=== PATIENT | female | born 1995 ===

== ENCOUNTER 2025-01-27 07:00 | Day surgery (SDC) | payer OTHER ==
[2025-01-20 11:14] VITALS: BP 108/71
[2025-01-20 12:22] LABS: BASO % 0.8 % (0.1-1.2); EOS # 0.23 (0.04-0.54); EOS % 4.8 % (0.7-7.0); LYMPH # 1.61 (1.18-3.74); LYMPH % 33.3 % (19.3-53.1); MEAN PLATELET VOLUME 9.90 fl (9.4-12.4); MONO # 0.42 (0.24-0.82); MONO % 8.7 % (4.7-12.5); NEUT # 2.53 (1.56-6.13); NEUT % 52.4 % (34.0-71.1); RED CELL DISTRIBUTION WIDTH 13.8 % (11.6-14.4)
[2025-01-20 12:41] LABS: INR 0.98
[2025-01-20 12:42] LABS: URINE APPEARANCE Clear; URINE BILIRRUBIN Negative (NEGATIVE); URINE BLOOD Negative; URINE COLOR Yellow; URINE GLUCOSE Negative (NEGATIVE); URINE KETONE Negative (NEGATIVE); URINE LEUKOCYTE Negative; URINE NITRATE Negative; URINE PROTEIN Negative (NEGATIVE); URINE UROBILINOGEN 0.2 E.U./dl
[2025-01-20 12:43] LABS: URINE BACTERIA 169.1 uL (0.0-1933); URINE EPITHELIAL CELLS 10.5 uL (0.0-38.8); URINE RBC 6.4 uL (0.0-20.8); URINE WBC 2.6 uL (0.0-23.2)
[2025-01-20 12:47] LABS: ALT/SGPT 19.0 U/L (12-78); AST/SGOT 15.0 U/L (15-37); BILIRUBIN TOTAL 0.39 mg/dL (0.3-1.2); BUN CREA RATIO 22.0 (7.0-25.0); CREATININE SERUM 0.76 mg/dL (0.55-1.02); GFR 89.97; GLOBULINA 3.0 G/DL (2.4-3.5); GLUCOSE FASTING 83.0 mg/dL (65-100); OSMOLALITY SERUM 284.0 MOSM/KG (275-295)
[2025-01-20 13:45] LABS: URINE CAST 0.00 uL (0.0-1.40)
[~2025-01-27] VITALS: Ht 167.6 cm; Wt 81.6 kg
[2025-01-27] MEDS ORDERED: POVIDONE-IODINE 118 ML BOTT TOP ONE (08:56)
[2025-01-27] MEDS ORDERED: CHLORHEXIDINE GLUCONATE 120 ML BOTTLE TOP ONE (09:05)
[2025-01-27] MEDS ORDERED: CELEBREX200MG PO (10:08)
[2025-01-27] MEDS ORDERED: KETOROLAC TROMETHAMINE 30 MG VIAL IV STA (11:21)
[2025-01-27] MEDS ORDERED: KETOROLAC TROMETHAMINE 30 MG VIAL ONE (12:02)
== END 2025-01-27 13:20 | disposition home or self-care (01) ==
LOC: CIR.AMB 07:00
PROVIDERS: ATTEND Obstetrics & Gynecology
DX: N87.1 Moderate cervical dysplasia (principal)